=== PATIENT | female | born 1955 | race Caucasian/White ===

== ENCOUNTER 2016-11-22 19:44 | Emergency (ER) | payer OTHER ==
[2016-11-22] MEDS ORDERED: Ondansetron ODT TAB* 4 MG PO ONE ×2 (20:33→22:25)
--- NOTE | 2016-11-22 20:52 | ED ---
Throat Pain/Nasal Congestion - HPI Summary HPI Summary: Pt here w/ Lt lower dental pain x weeks. Has had multiple dental procedures in an effort to resolve this issue - cap, root canal, etc, She's been taking anbx - 1 for 4 days and 1 for 2 days - she's been tolerating these well and has surgical extraction scheduled for tomorrow however tried a percocet today to reduce her pain and has been nauseous since, doesn't like the way it's making her feel - unable to take her evening anbx so oral surgeon advised coming to ED for IV anbx. She has not tried any anti-emetic medications. She has been taking ibuprofen + acetaminophen all along and would like to go back to this regimen until surgery tomorrow morning. Denies fever, chills, vomiting, ab pain, diarrhea, drainage from dental area, trouble breathing or swallowing. - History of Current Complaint Chief Complaint: EDDentalPain Time Seen by Provider: 11/22/16 20:33 Hx Obtained From: Patient, Family/Boiler Inspector - female friend - Allergies/Home Medications Allergies/Adverse Reactions: Allergies Allergy/AdvReac Type Severity Reaction Status Date / Time Amoxicillin Allergy Unknown Verified 11/22/16 19:47 Reaction Details Moxifloxacin [From Avelox] Allergy Unknown Verified 11/22/16 19:47 Reaction Details Tetracycline Allergy Unknown Verified 11/22/16 19:47 Reaction Details PMH/Surg Hx/FS Hx/Imm Hx Previously Healthy: Yes Endocrine/Hematology History: Denies: Hx Anticoagulant Therapy, Hx Blood Disorders, Autoimmune Disease Cardiovascular History: Reports: Hx Hypertension - HCTZ/Lisinopril - very lose doses Respiratory History: Reports: Hx Asthma - controlled w/ daily inhaled meds - Cancer History Hx Chemotherapy: No Hx Radiation Therapy: No Infectious Disease History: No Infectious Disease History: Denies: Traveled Outside the [place] in Last 30 Days - Social History Alcohol Use: None Hx Substance Use: No Substance Use Type: Reports: None Hx Tobacco Use: Yes Smoking Status (MU): Light Every Day Tobacco Smoker Review of Systems Constitutional: Negative Negative: Fever, Chills, Fatigue Eyes: Negative Negative: Photophobia, Blurred Vision, Diplopia, Drainage, Erythema Positive: Dental Pain - see HPI. Negative: Sore Throat, Ear Ache, Nasal Discharge Cardiovascular: Negative Negative: Chest Pain Respiratory: Negative Negative: Shortness Of Breath Positive: Nausea. Negative: Abdominal Pain, Vomiting, Diarrhea Positive: no symptoms reported Musculoskeletal: Negative Skin: Negative Neurological: Negative Positive: Anxious - frustrated - just wants to sleep All Other Systems Reviewed And Are Negative: Yes Physical Exam Triage Information Reviewed: Yes Vital Signs On Initial Exam: Initial Vitals Temp Pulse Resp BP Pulse Ox 97.3 F 96 18 163/86 100 11/22/16 19:49 11/22/16 19:49 11/22/16 19:49 11/22/16 19:49 11/22/16 19:49 Vital Signs Reviewed: Yes Appearance: Positive: Well-Appearing, Well-Nourished, Pain Distress - mild Skin: Positive: Warm, Dry - no erythema, no edema Head/Face: Positive: Normal Head/Face Inspection Eyes: Positive: Normal, EOMI. Negative: Conjunctiva Inflammed, Discharge ENT: Positive: Normal ENT inspection, Hearing grossly normal, Pharynx normal, Trismus - pt can open mouth most of the way Dental: Positive: Other - #18 with opaque white filling in place - no erythema, no edema, no drainage. Negative: Abscess @ - no obvious abscess observed Neck: Positive: Supple, Nontender Respiratory/Lung Sounds: Positive: Breath Sounds Present Cardiovascular: Positive: Normal Abdomen Description: Positive: Nontender, Soft Bowel Sounds: Positive: Present Musculoskeletal: Positive: Normal, Strength/ROM Intact Neurological: Positive: Normal, Sensory/Motor Intact, Alert, Oriented to Person Place, Time, CN Intact II-III Psychiatric: Positive: Anxious - [place] Coma Scale Coma Scale Total: 15 Diagnostics - Vital Signs Vital Signs Temp Pulse Resp BP Pulse Ox 11/22/16 19:49 97.3 F 96 18 163/86 100 - Laboratory Lab Statement: Any lab studies that have been ordered have been reviewed, and results considered in the medical decision making process. Re-Evaluation - Re-Evaluation First Eval Change: Improved - was nauseous and shaking - s/p zofran and yogurt reports, "I feel so much better" - took all PO anbx w/o difficulty EENT Course/Dx - Diagnoses Provider Diagnoses: Narcotic-induced nausea and vomiting Discharge - Discharge Plan Condition: Stable Disposition: HOME Referrals: Rosa Chu MD [Primary Care Provider] - Additional Instructions: You appear to have had nausea from your narcotic pain mediation, percocet. This may have been a one time event. If you decide to try this in the future, make sure you have eaten and are well hydrated. If you have similar experience, you may want to avoid future use - there are other pain medications that may be helpful and not cause you to have nausea. Complete all of treatments as directed by oral surgeon. *Return to ED if you develop vomiting, chest pain, shortness of breath, severe headache, neck pain, difficulty swallowing
[2016-11-22 22:05] VITALS: BP 146/76
[2016-11-22] MEDS ORDERED: Ketorolac INJ* 60 MG/2 ML VIAL IM ONE (22:25)
== END 2016-11-22 22:56 | disposition home or self-care (01) ==
LOC: ED 19:44
DX: R11.2 Nausea with vomiting, unspecified (principal); T40.605A Adverse effect of unspecified narcotics, initial encounter; Y92.9 Unspecified place or not applicable
CPT/HCPCS: 96372; 99282; A9270-GY; J1885

== ENCOUNTER 2019-03-01 07:16 | Day surgery (SDC) | payer BC ==
[~2019-03-01 07:16] MED LIST: Buffered Lidocaine 1% SYRIN* 1 ML/SYRINGE INTRADERM ONE; Famotidine IV* 10 MG/ML 2 ML (20 mg) IV ONE; Lactated Ringers 1000 ML Bag* 1,000 ML IV SCH
[2019-03-01] MEDS ORDERED: Famotidine IV* 10 MG/ML 2 ML (20 mg) ONE (08:29)
[2019-03-01] MEDS ORDERED: fentaNYL* 50 MCG/ML 2 ML VIAL (100 MCG VIAL) ONE (08:42)
[2019-03-01] MEDS ORDERED: Propofol* 10 MG/ML 20 ML BTL ONE (08:42)
[2019-03-01] MEDS ORDERED: KETAMINE HCL* 50 MG/ML 10 ML VIAL ONE (08:42)
[2019-03-01] MEDS ORDERED: Lidocaine 2% PF * 5 ML VIAL ONE (08:42)
[2019-03-01] MEDS ORDERED: Midazolam* 1 MG/ML 5 ML VIAL (5 MG) ONE (08:42)
[2019-03-01] MEDS ORDERED: Ondansetron INJ* 2 MG/ML VIAL ONE (08:42)
[2019-03-01] MEDS ORDERED: Naloxone* 0.4 MG/ML 1 ML VIAL IV PRN (09:11)
[2019-03-01] MEDS ORDERED: Ondansetron INJ* 2 MG/ML VIAL IV PRN (09:11)
[2019-03-01] MEDS ORDERED: fentaNYL* 50 MCG/ML 2 ML VIAL (100 MCG VIAL) IV PRN (09:11)
[2019-03-01 10:33] VITALS: BP 147/77
--- NOTE | 2019-03-02 00:02 | PRO ---
CC: Rosa Chu MD* COLONOSCOPY REPORT: DATE OF SERVICE: 03/01/19 INDICATION FOR PROCEDURE: Change in bowel habits. PROCEDURE PERFORMED: Complete colonoscopy to the cecum. MEDICATIONS GIVEN: Please see anesthesia record. DESCRIPTION OF PROCEDURE: After the colonoscopy procedure including the risks, benefits, and alternatives with the risks not limited to perforation, surgery, missed lesions, and/or were explained to the patient, written and informed consent was obtained, IV medication was given, and a rectal exam was performed. The rectal exam was unremarkable. The adult Olympus colonoscope was then inserted into the patient's rectum and advanced very carefully through the entirety of the colon into the cecal base. Cecal base was carefully inspected and normal in appearance. The terminal ileal valve was identified and normal in appearance. A photograph was taken of the cecal cap. Over the next 8 minutes the scope was carefully withdrawn inspecting the mucosa. The mucosa was normal without any evidence of polyps, lesions, or inflammatory disease. On return to the rectum, direct views were normal. On retroflexion, the views were normal as well. She had a relatively fixed sigmoid and sharp angulation around 30 cm. It required a fair amount of water to get passed, but otherwise the colonoscopy was normal. Scope was then removed from the patient. She tolerated the procedure well. She returned to the recovery room in stable condition. IMPRESSION: 1. Complete colonoscopy to the cecum. 2. Good prep. 3. Fixed angle at around 30 cm in the sigmoid requiring a pediatric scope to navigate. 4. Otherwise normal colonoscopy. RECOMMENDATIONS: Recommend fiber daily for her mild change in bowel habits. She is not bothered by it. Stool has been a little bit flatter, it could perhaps be from the sharp angulation within the colon. I will see her back in the office if there are any issues, but would plan on a repeat screening colonoscopy in 10 years' time. [id number]/[facility] #: [id number] PAT
== END 2019-03-01 13:08 | disposition home or self-care (01) ==
LOC: OR 07:16
PROVIDERS: ATTEND Internal Medicine Gastroenterology
PROC: 0DJD8ZZ Inspection of Lower Intestinal Tract, Via Natural or Artificial Opening Endoscopic (ICD-10-PCS; principal; 2019-03-01 09:15)
DX: R19.4 Change in bowel habit (principal); I10 Essential (primary) hypertension; J44.9 Chronic obstructive pulmonary disease, unspecified; I73.00 Raynaud's syndrome without gangrene; M15.9 Polyosteoarthritis, unspecified
CPT/HCPCS: J2250; J2405; J2704; J3010